=== PATIENT | female | born 1995 | race Two or more races ===

== ENCOUNTER 2019-09-02 06:40 | Emergency (ER) | payer MEDICAID ==
[~2019-09-02] VITALS: Ht 160 cm; Wt 96.6 kg
[2019-09-02 08:00] VITALS: BP 115/57
== END 2019-09-02 08:07 | disposition home or self-care (01) ==
LOC: ER 06:40
DX: K04.7 Periapical abscess without sinus (principal)

== ENCOUNTER 2021-01-23 08:16 | Inpatient (IN) | payer MEDICAID ==
[~2021-01-23] VITALS: Ht 160 cm; Wt 102.2 kg
[2021-01-23 08:46] LABS: Basophils # (auto) 0.1 10 ^3/uL (0-0.2); Basophils % (auto) 0.8 % (0.0-2.0); Eosinophils # (auto) 0.1 10 ^3/uL (0-0.8); Eosinophils % (auto) 0.9 % (0.0-7.0); Hematocrit 41.8 % (36.0-46.0); Hemoglobin 14.1 g/dL (12.2-16.2); Lymphocytes # (auto) 3.6 10 ^3/uL (0.4-5.4); Lymphocytes % (auto) 26.9 % (10.0-50.0); Mean Corpuscular Hemoglobin 30.2 pg (28.0-32.0); Mean Corpuscular Hgb Conc. 33.8 g/dL (32.0-36.0); Mean Corpuscular Volume 89.5 fL (80.0-100.0); Monocytes # (auto) 0.7 10 ^3/uL (0-1.3); Monocytes % (auto) 5.1 % (0.0-12.0); Neutrophils % (auto) 66.3 % (37.0-80.0); Nucleated Red Blood Cells % 0.1 %; Red Blood Cells 4.67 10^6/uL (4.0-5.20); Red Cell Distribution Width 12.7 % (11.8-14.3); White Blood Cell 13.5 10^3/uL (4.4-10.8)
[2021-01-23 09:11] LABS: Albumin 3.8 g/dL (3.4-5.0); Calcium 8.5 mg/dL (8.5-10.1); Potassium 3.5 mmol/L (3.5-5.1)
[2021-01-23 09:16] LABS: Bilirubin, Total 0.6 mg/dL (0.2-1.0); Total Protein 7.3 g/dL (6.4-8.2)
[2021-01-23 09:52] LABS: BUN/Creatinine Ratio 15.6
[2021-01-23] MEDS ORDERED: SODIUM CHLORIDE 0.9% 1,000 ML IV ONE ×2 (10:00→12:15)
[2021-01-23] MEDS ORDERED: KETOROLAC TROMETH 30 MG/ML 1ML VIAL IV ONE (10:30)
[2021-01-23] MEDS ORDERED: ONDANSETRON HCL 4 MG/2 ML VIAL IV ONE (10:30)
[2021-01-23] MEDS ORDERED: cefTRIAXone 1GM/50ML D5W 50 ML IV ONE (11:30)
[2021-01-23] MEDS ORDERED: MORPHINE SULF INJ 2 MG/ML SYRINGE 1ML IV PRN ×2 (12:00)
[2021-01-23] MEDS ORDERED: ACETAMINOPHEN 325 MG TAB PO PRN (12:00)
[2021-01-23] MEDS ORDERED: NITROGLYCERIN 0.4 MG SL TAB SL PRN (12:00)
[2021-01-23 12:51] LABS: INR 1.03 (0.9-1.15)
[2021-01-23] MEDS ORDERED: CHOL1CAP21 PO (15:51)
[2021-01-23 15:59] VITALS: BP 106/64
[2021-01-23] MEDS: D5W/SOD CHL 0.45%/KCL 20MEQ 1,000 ML IV SCH (16:53)
[2021-01-23 17:00] VITALS: BP 115/60
[2021-01-23 18:58] LABS: Urine Bacteria FEW /hpf (None Seen); Urine Blood Negative /uL (Negative); Urine Mucus FEW (None Seen); Urine Specific Gravity 1.026 (1.001-1.035); Urine WBC 17 /hpf (0 - 5)
[2021-01-23] MEDS: ONDANSETRON HCL 4 MG/2 ML VIAL IV PRN (20:40)
[2021-01-23 22:00] VITALS: BP 133/81
[2021-01-24] MEDS: HYDROcodone-ACET 5/325MG TAB PO PRN ×2 (00:54→17:02)
[2021-01-24] MEDS: D5W/SOD CHL 0.45%/KCL 20MEQ 1,000 ML IV SCH ×3 (03:53→16:46)
[2021-01-24 05:00] VITALS: BP 105/53
[2021-01-24] MEDS: ONDANSETRON HCL 4 MG/2 ML VIAL IV PRN (06:02)
[2021-01-24] MEDS ORDERED: GLYCOPYRROLATE 0.2 MG/ML 1ML VIAL IV ONE (08:01)
[2021-01-24] MEDS ORDERED: NEOSTIGMINE 1 MG/ML INJ (10mg/10ML VIAL) IV ONE (08:01)
[2021-01-24] MEDS ORDERED: ceFAZolin 1GM/50ML 100 ML IV ONE (08:16)
[2021-01-24] MEDS ORDERED: MEPERIDINE HCL (25 MG/ML) 1ML VIAL ONE (08:26)
[2021-01-24] MEDS ORDERED: fentaNYL CITRATE 100 MCG/2 ML VL ONE (08:26)
[2021-01-24] MEDS ORDERED: MIDAZOLAM HCL 1MG/1ML-2 ML VIAL ONE (08:26)
[2021-01-24] MEDS ORDERED: PROPOFOL 10 MG/ML 20 ML IV ONE (08:27)
[2021-01-24] MEDS ORDERED: DexAMETHasone SOD PHOS 10MG/1ML VIAL INJ ONE (08:27)
[2021-01-24] MEDS ORDERED: BUPIVACAINE W/ EPINEPH 0.25% INJ 50ML MDV ONE (08:43)
[2021-01-24] MEDS ORDERED: LIDOCAINE 1% HCL (LOCAL ANESTH.) INJ 20ML MDV ONE (08:43)
[2021-01-24] MEDS ORDERED: ROCURONIUM 10MG/ML 10ML VIAL IV ONE (08:54)
[2021-01-24] MEDS ORDERED: METOCLOPRAMIDE HCL 5MG/ml INJ 2ml VIAL ONE (08:54)
[2021-01-24 09:00] VITALS: BP 105/57
[2021-01-24] MEDS ORDERED: LABETALOL HCL 5 MG/ML 4ML SYRINGE IV PRN (09:00)
[2021-01-24] MEDS ORDERED: ePHEDrine SULFATE 50 MG/ML AMP IV PRN (09:00)
[2021-01-24] MEDS ORDERED: MIDAZOLAM HCL 1MG/1ML-2 ML VIAL IV PRN (09:00)
[2021-01-24] MEDS ORDERED: fentaNYL CITRATE 100 MCG/2 ML VL IV PRN (09:00)
[2021-01-24] MEDS ORDERED: MORPHINE SULFATE 4 MG/ML SYR/VIAL IV PRN (09:00)
[2021-01-24] MEDS ORDERED: HYDROmorphone HCL 2 MG/ML VL IV PRN (09:00)
[2021-01-24] MEDS ORDERED: ONDANSETRON HCL 4 MG/2 ML VIAL IV PRN (09:00)
[2021-01-24] MEDS: MORPHINE SULF INJ 2 MG/ML SYRINGE 1ML IV PRN ×2 (12:51→21:08)
[2021-01-24 13:00] VITALS: BP 109/62
[2021-01-24 16:55] VITALS: BP 116/73
[2021-01-24 22:00] VITALS: BP 111/69
[2021-01-25 05:00] VITALS: BP 124/69
[2021-01-25] MEDS: HYDROcodone-ACET 5/325MG TAB PO PRN (05:01)
[2021-01-25 08:00] VITALS: BP 111/73
[2021-01-25 09:08] LABS: Basophils # (auto) 0.1 10 ^3/uL (0-0.2); Basophils % (auto) 0.3 % (0.0-2.0); Eosinophils # (auto) 0 10 ^3/uL (0-0.8); Eosinophils % (auto) 0.1 % (0.0-7.0); Hematocrit 37.5 % (36.0-46.0); Hemoglobin 12.6 g/dL (12.2-16.2); Lymphocytes # (auto) 3.6 10 ^3/uL (0.4-5.4); Lymphocytes % (auto) 23.1 % (10.0-50.0); Mean Corpuscular Hemoglobin 29.6 pg (28.0-32.0); Mean Corpuscular Hgb Conc. 33.6 g/dL (32.0-36.0); Mean Corpuscular Volume 88.3 fL (80.0-100.0); Monocytes # (auto) 1.2 10 ^3/uL (0-1.3); Monocytes % (auto) 7.8 % (0.0-12.0); Neutrophils # (auto) 10.8 10 ^3/uL (1.6-8.6); Neutrophils % (auto) 68.7 % (37.0-80.0); Red Blood Cells 4.24 10^6/uL (4.0-5.20); Red Cell Distribution Width 12.8 % (11.8-14.3); White Blood Cell 15.7 10^3/uL (4.4-10.8)
[2021-01-25] MEDS: D5W/SOD CHL 0.45%/KCL 20MEQ 1,000 ML IV SCH (09:51)
== END 2021-01-25 15:45 | disposition home or self-care (01) | DRG 263 ==
LOC: ER 08:16 → TELE 11:46 → TELE-WESTW 14:49
PROVIDERS: ADMIT Internal Medicine; ATTEND Internal Medicine
PROC: 0FT44ZZ Resection of Gallbladder, Percutaneous Endoscopic Approach (ICD-10-PCS; principal; 2021-01-24 08:31)
DX: K80.00 Calculus of gallbladder with acute cholecystitis without obstruction (principal); E66.01 Morbid (severe) obesity due to excess calories; K42.9 Umbilical hernia without obstruction or gangrene; Z20.822 Contact with and (suspected) exposure to COVID-19; E11.9 Type 2 diabetes mellitus without complications; Z71.3 Dietary counseling and surveillance; Z68.39 Body mass index [BMI] 39.0-39.9, adult
CPT/HCPCS: 36415; 74176; 76705; 80053; 81001; 81025; 82247; 83690; 85025; 85610; 86850; 86900; 86901; 87426; 96361; 96365; 96375; G0378; J0690; J0696; J1100; J1885; J2001; J2250; J2405; J2704

== ENCOUNTER 2024-04-07 09:48 | Emergency (ER) | payer MEDICAID ==
[~2024-04-07] VITALS: Ht 157.5 cm; Wt 105.3 kg
[2024-04-07 10:36] VITALS: BP 129/75; PULSE 86; RESP 16; O2SAT 98
[2024-04-07 10:57] LABS: Basophils # (auto) 0.1 10 ^3/uL (0-0.2); Basophils % (auto) 0.7 % (0.0-2.0); Eosinophils # (auto) 0.1 10 ^3/uL (0-0.8); Eosinophils % (auto) 1.2 % (0.0-7.0); Hematocrit 43.9 % (36.0-46.0); Hemoglobin 14.8 g/dL (12.2-16.2); Lymphocytes % (auto) 32.7 % (10.0-50.0); Mean Corpuscular Hemoglobin 30.2 pg (28.0-32.0); Mean Corpuscular Hgb Conc. 33.7 g/dL (32.0-36.0); Mean Corpuscular Volume 89.4 fL (80.0-100.0); Monocytes # (auto) 0.7 10 ^3/uL (0-1.3); Monocytes % (auto) 5.9 % (0.0-12.0); Neutrophils # (auto) 7.2 10 ^3/uL (1.6-8.6); Neutrophils % (auto) 59.5 % (37.0-80.0); Nucleated Red Blood Cells % 0.1 %; Platelet Count (auto) 273 10^3/uL (140-450); Red Blood Cells 4.91 10^6/uL (4.0-5.20); Red Cell Distribution Width 13.2 % (11.8-14.3); White Blood Cell 12.1 10^3/uL (4.4-10.8)
[2024-04-07 11:05] LABS: Anion Gap 5 (5-15); Carbon Dioxide 29 mmol/L (20-31); Chloride 106 mmol/L (98-107); Sodium 140 mmol/L (136-145)
[2024-04-07 11:07] LABS: Calcium 9.9 mg/dL (8.7-10.4)
[2024-04-07 11:11] LABS: BUN/Creatinine Ratio 10.4 (10.0-20.0); Blood Urea Nitrogen 8 mg/dL (9-23); Glucose 82 mg/dL (74-106)
[2024-04-07 12:54] LABS: Urine Bacteria FEW /hpf (None Seen); Urine Blood Negative /uL (Negative); Urine Clarity Clear (Clear); Urine Color Yellow (Yellow); Urine Hyaline Cast FEW /lpf (0 - 2); Urine Mucus FEW (None Seen); Urine Protein, UAD TRACE (Negative); Urine Specific Gravity 1.032 (1.001-1.035); Urine Urobilinogen Normal (Negative); Urine WBC 12 /hpf (0 - 5); Urine pH 5.5 (5.0-9.0)
[2024-04-07] MEDS ORDERED: CIPR-173 PO (14:30)
== END 2024-04-07 15:16 | disposition left against medical advice (07) ==
LOC: ER 09:48
DX: N39.0 Urinary tract infection, site not specified (principal); D72.829 Elevated white blood cell count, unspecified; Z90.49 Acquired absence of other specified parts of digestive tract; Z32.02 Encounter for pregnancy test, result negative
CPT/HCPCS: 36415; 80048; 81001; 81025; 82962; 85025